=== PATIENT | female | born 1995 | race Caucasian/White ===

== ENCOUNTER 2018-05-30 21:39 | Emergency (ER) | payer OTHER ==
[2016-03-02 22:17] VITALS: BMI 39.2
--- NOTE | 2018-05-30 22:21 | OBHP ---
Datetime: 05/30/2018 22:14 IP Adm Impression: , intrauterine IP Admit Plan: Discharge home Admit Comment, IP Provider: with IUP at 36+4 weeks presents with irreg contractions and back pa in at site of prior epidural good movement, denies vaginal bleeding or leakage of fluids OB Hx: 1 FT , no complications [employer] Hx: LMP end of Aug or sep, denies STIS, normal paps denies PMH NKDA taking prenatals sometimes SVE: FT thick posterior EFM cat 1 [place] no contractions labor precuations discussed patient may take tylenol PRN back pain follow up appointment next week with her private OBGYN already scheduled discharge home Pelvic Type - PN: Adequate Extremities - PN: Not Done Abdomen - PN: Normal Back - PN: Not Done Breast - PN: Not Done Lungs - PN: Not Done Heart - PN: Not Done Thyroid - PN: Not Done Neurologic - PN: Not Done HEENT - PN: Normal General - PN: Normal Membranes, Provider: Intact Pool Provider: Negative EGA AdmitDate IP: 36.4 Vital Signs Provider: Reviewed; Within Normal Limits IP Chief Complaint: Uterine contractions FHR Category Provider Fetus A: Category I Dilatation, Provider: FT Effacement, Provider: thick Station, Provider: -3 Genitourinary Exam: Normal DTRs - PN: Not Done
[2018-05-31 02:30] VITALS: BP 117/64; PULSE 73; TEMP 97.9
== END 2018-05-30 22:28 | disposition home or self-care (01) ==
LOC: C.EROB 21:39
DX: O47.03 False labor before 37 completed weeks of gestation, third trimester (principal); Z3A.36 36 weeks gestation of pregnancy

== ENCOUNTER 2018-06-22 12:23 | Inpatient (IN) | payer OTHER ==
[2016-03-02 22:17] VITALS: BMI 39.2
[2018-06-22 14:06] LABS: SQUAMOUS EPITHIAL 3 /hpf (0-5); URINE BACTERIA RARE (<OCC); URINE BILIRUBIN NEGATIVE (NEGATIVE); URINE BLOOD NEGATIVE (NEGATIVE); URINE CLARITY Hazy (Clear); URINE COLOR Yellow (YELLOW); URINE GLUCOSE (UA) NORMAL (Normal); URINE LEUKOCYTE ESTERASE 1+ Leu/uL (Negative); URINE PROTEIN 1+ mg/dL (NEGATIVE); URINE UROBILINOGEN NORMAL mg/dL (0.2-1.0)
[2018-06-22 14:54] LABS: BASO % 0.5 % (0.0-2.0); EOS # 0.2 K/uL (0.0-0.7); EOS % 1.6 % (0.0-4.0); HEMOGLOBIN 12.4 g/dL (11.0-16.0); LYMPH # 2.2 K/uL (1.0-4.3); LYMPH % 22.4 % (20.0-40.0); MEAN CELL VOLUME 83.2 fL (81.0-99.0); MEAN CORPUSCULAR HEMOGLOBIN 28.4 pg (27.0-31.0); MEAN CORPUSCULAR HGB CONC 34.2 g/dL (33.0-37.0); MEAN PLATELET VOLUME 10.9 fL (7.2-11.7); MONO # 0.9 K/uL (0.0-0.8); MONO % 9.3 % (0.0-10.0); NEUT # 6.5 K/uL (1.8-7.0); NEUT % 66.2 % (50.0-75.0); RBC 4.35 Mil/uL (3.80-5.20); WHITE BLOOD COUNT 9.8 K/uL (4.8-10.8)
[2018-06-22] MEDS ORDERED: Lactated Ringer's 1,000 ML IV SCH (15:00)
[2018-06-22] MEDS ORDERED: Penicillin G 5 Million Unit Vial IVPB ONE ×2 (15:00→19:17)
[2018-06-22] MEDS ORDERED: Lactated Ringer's 1,000 ML IV ONE (15:00)
[2018-06-22 15:23] LABS: ALB/GLOB RATIO 1.2 (1.0-2.1); ALBUMIN 4.1 g/dL (3.5-5.0); ALT/SGPT 16 U/L (9-52); AST/SGOT 17 U/L (14-36); BLOOD UREA NITROGEN 14 mg/dL (7-17); CALCIUM 9.8 mg/dl (8.6-10.4); GFR NON-AFRICAN AMERICAN > 60
--- NOTE | 2018-06-22 18:10 | OBADHP ---
Datetime: 06/22/2018 17:00 Dilatation, Provider: 1-2 Datetime: 06/22/2018 13:36 IP Chief Complaint Other: Tachycardia Admit Comment, IP Provider: This 23 year old Female with PMHx of anemia requiring infusion and UTI during this , presents c/o lower abdominal pressure for the past 4 days. She is with LMP 09/05/17 and EDC 06/23/18. She reports that she had a UTI last week, but was not worked up o r treated. She currently denies dysuria, urinary frequency, malodorous urine, abdominal cramping, or fevers/chills. She states her has been uneventful to date. She denies any vaginal bleeding, contractions, decreased movement, or loss of fluids. She was seen last week in Dr. Sylvester's off [facility] ([facility]), and she was informed that she is GBS+ and will require antibiotics during labor. She oth erwise denies any additional acute complaints. PMHx- anemia requiring transfusion ObHx- ; last child is a 2yo F, , induced at 40wks, no complications GynHx- 1st menses 12yo; normal flow; last PAP 2015 normal; no hx of STDs PSHx- denies Meds- none NKDA FamHx- Mom 40 / Dad 41, healthy SocHx- denies tobacco, ETOH, or illicit drug use; lives home on 1st floor; on maternity leave Blood Type- A(+) A_P: 1.Case discussed with Dr. Sylvester and request to admit patient for IOL - Start Cervidil 10mg VAG once 2. Lower abdominal discomfort - pt with hx of UTI during (documented in 04/2018 and reported to have similar sx's last week) - f/u UA 3. GBS(+) - detected 05/29/18 - Start Penicillin G 5mu once + Penicillin G 2.5mu q4H 4. Maternal Dehydration and Tachycardia Will admit patient, order admit labs, IV Hydration and will place Cervidil Anticipate vaginal delivery Pelvic Type - PN: Adequate Extremities - PN: Normal Abdomen - PN: Normal Back - PN: Normal Breast - PN: Not Done Lungs - PN: Normal Heart - PN: Normal Thyroid - PN: Normal Neurologic - PN: Normal HEENT - PN: Normal General - PN: Normal Presentation-Admit: Vertex FHR - Baseline A Provider: 145 Membranes, Provider: Intact Contraction Comments Provider: Ocassional Comments, ACOG Physical Exam: Grossly bengin, no LE edema, Fundal height 2cm below xyphoid, Cervical exam - 1-2cm dilated. Gestation - Est Wks by US: 39.6 Vital Signs Provider: Reviewed; Within Normal Limits IP Chief Complaint: Maternal discomfort NICHD Variability Prov Fetus A: Moderate 6-25bpm NICHD Accel Fetus A IP Provider: 10X10 FHR Category Provider Fetus A: Category I NICHD Decel Fetus A IP Provider: None Effacement, Provider: 30 Station, Provider: -3 Genitourinary Exam: Normal DTRs - PN: Normal EGA AdmitDate IP: 39.6 IP Adm Impression: Term, intrauterine ; No Active Labor; Intact Membranes IP Admit Plan: Initiate labor induction protocol Datetime: 05/30/2018 22:14 Pool Provider: Negative
--- NOTE | 2018-06-22 18:16 | OBPN ---
Datetime: 06/22/2018 17:00 IP Progress Impression Other: Dehydration and Tachycardia IP Informed Consent Obtain: Vaginal Delivery IP Procedures: Sterile Vag Exam IP Progress Plan: Induction; Cervical Ripening; Antibiotic therapy Membranes, Provider: Intact Contraction Comments Provider: Ocassional and mild FHR - Baseline A Provider: 160 Gestation - Est Wks by US: 39.6 Presentation-Admit: Vertex IP Progress Note Comment: Pt seen and examined S/P IV Hydration Cervidil placed without difficulty at about 1500 All labs reviewed Reassuring FHT's / Tachycardia ressolving Hope for a vaginal delivery NICHD Accel Fetus A IP Provider: 10X10 FHR Category Provider Fetus A: Category I NICHD Variability Prov Fetus A: Moderate 6-25bpm Dilatation, Provider: 1-2 Effacement, Provider: 30 Station, Provider: -3 Datetime: 06/22/2018 13:36 Vital Signs Provider: Reviewed; Within Normal Limits NICHD Decel Fetus A IP Provider: None Datetime: 05/30/2018 22:14 Pool Provider: Negative
--- NOTE | 2018-06-22 18:20 | OBHP ---
Datetime: 06/22/2018 17:00 Presentation-Admit: Vertex FHR - Baseline A Provider: 160 Membranes, Provider: Intact Contraction Comments Provider: Ocassional and mild Gestation - Est Wks by US: 39.6 NICHD Variability Prov Fetus A: Moderate 6-25bpm NICHD Accel Fetus A IP Provider: 10X10 FHR Category Provider Fetus A: Category I Dilatation, Provider: 1-2 Effacement, Provider: 30 Station, Provider: -3 Datetime: 06/22/2018 13:36 IP Adm Impression: Term, intrauterine ; No Active Labor; Intact Membranes IP Chief Complaint Other: Tachycardia IP Admit Plan: Initiate labor induction protocol Admit Comment, IP Provider: This 23 year old Female with PMHx of anemia requiring infusion and UTI during this , presents c/o lower abdominal pressure for the past 4 days. She is with LMP 09/05/17 and EDC 06/23/18. She reports that she had a UTI last week, but was not worked up o r treated. She currently denies dysuria, urinary frequency, malodorous urine, abdominal cramping, or fevers/chills. She states her has been uneventful to date. She denies any vaginal bleeding, contractions, decreased movement, or loss of fluids. She was seen last week [facility] [place] [facility] and she was informed that she is GBS+ and will require antibiotics during labor. She oth erwise denies any additional acute complaints. PMHx- anemia requiring transfusion ObHx- ; last child is a 2yo F, , induced at 40wks, no complications GynHx- 1st menses 12yo; normal flow; last PAP 2015 normal; no hx of STDs PSHx- denies Meds- none NKDA FamHx- Mom 40 / Dad 41, healthy SocHx- denies tobacco, ETOH, or illicit drug use; lives home on 1st floor; on maternity leave Blood Type- A(+) A_P: 1. Maternal Dehydration and Tachycardia, otherwise NST Reactive - Case discussed with Dr. Sylvester and request to admit patient for IOL - Start Cervidil 10mg VAG once 2. Lower abdominal discomfort - pt with hx of UTI during (documented in 04/2018 and reported to have similar sx's last week) - f/u UA 3. GBS(+) - detected 05/29/18 - Start Penicillin G 5mu once + Penicillin G 2.5mu q4H Will admit patient, order admit labs, IV Hydration and will place Cervidil Anticipate vaginal delivery Pelvic Type - PN: Adequate Extremities - PN: Normal Abdomen - PN: Normal Back - PN: Normal Breast - PN: Not Done Lungs - PN: Normal Heart - PN: Normal Thyroid - PN: Normal Neurologic - PN: Normal HEENT - PN: Normal General - PN: Normal Comments, ACOG Physical Exam: Grossly bengin, no LE edema, Fundal height 2cm below xyphoid, Cervical exam - 1-2cm dilated. EGA AdmitDate IP: 39.6 Vital Signs Provider: Reviewed; Within Normal Limits IP Indication for Induction Oth: Tachycardia Dehydration IP Chief Complaint: Maternal discomfort NICHD Decel Fetus A IP Provider: None Genitourinary Exam: Normal DTRs - PN: Normal
--- NOTE | 2018-06-22 18:41 | OBADHP ---
Datetime: 06/22/2018 17:00 FHR - Baseline A Provider: 160 Datetime: 06/22/2018 14:00 IP Chief Complaint Other: Tachycardia/ Dehydration Admit Comment, IP Provider: This 23 year old Female with PMHx of anemia requiring infusion and UTI during this , presents c/o lower abdominal pressure for the past 4 days. She is with LMP 09/05/17 and EDC 06/23/18. She reports that she had a UTI last week, but was not worked up o r treated. She currently denies dysuria, urinary frequency, malodorous urine, abdominal cramping, or fevers/chills. She states her has been uneventful to date. She denies any vaginal bleeding, contractions, decreased movement, or loss of fluids. She was seen last [facility]), and she was informed that she is GBS+ and will require antibiotics during labor. She oth erwise denies any additional acute complaints. PMHx- anemia requiring transfusion ObHx- ; last child is a 2yo F, , induced at 40wks, no complications GynHx- 1st menses 12yo; normal flow; last PAP 2015 normal; no hx of STDs PSHx- denies Meds- none NKDA FamHx- Mom 40 / Dad 41, healthy SocHx- denies tobacco, ETOH, or illicit drug use; lives home on 1st floor; on maternity leave Blood Type- A(+) A_P: 1. Maternal Dehydration and Tachycardia, otherwise NST Reactive - Case discussed with Dr. Sylvester and request to admit patient for IOL - Start Cervidil 10mg VAG once 2. Lower abdominal discomfort - pt with hx of UTI during (documented in 04/2018 and reported to have similar sx's last week) - f/u UA 3. GBS(+) - detected 05/29/18 - Start Penicillin G 5mu once + Penicillin G 2.5mu q4H Will admit patient, order admit labs, IV Hydration and will place Cervidil Anticipate vaginal delivery Pelvic Type - PN: Adequate Extremities - PN: Normal Abdomen - PN: Normal Back - PN: Normal Breast - PN: Not Done Lungs - PN: Normal Heart - PN: Normal Thyroid - PN: Normal Neurologic - PN: Normal HEENT - PN: Normal General - PN: Normal Gestation - Est Wks by US: 39.6 Vital Signs Provider: Reviewed FHR Category Provider Fetus A: Category I Dilatation, Provider: 1-2 Effacement, Provider: 30 Station, Provider: -3 Genitourinary Exam: Normal DTRs - PN: Normal IP Adm Impression: Term, intrauterine ; No Active Labor; Intact Membranes IP Admit Plan: Initiate labor protocol (Annotations: Data stored by CPN on behalf of user) Datetime: 06/22/2018 13:36 EGA AdmitDate IP: 39.6
[2018-06-22] MEDS ORDERED: Nalbuphine HCL 10 mg/ml Ampule ONE (22:13)
[2018-06-22] MEDS ORDERED: Nalbuphine 20 mg/ml Inj (1 ml) IVP PRN (22:15)
[2018-06-23] MEDS ORDERED: Fentanyl/Bupivacaine HCl 250 ML EPI ONE (00:42)
[2018-06-23] MEDS ORDERED: Lidocaine 2% MPF (5 ml) Inj ONE ×2 (01:27)
[2018-06-23] MEDS ORDERED: Nalbuphine HCL 10 mg/ml Ampule IVP ONE (01:30)
[2018-06-23] MEDS ORDERED: Nalbuphine HCL 10 mg/ml Ampule ONE (01:35)
[2018-06-23] MEDS ORDERED: Oxytocin 10 Units/ml Inj ONE (01:43)
[2018-06-23] MEDS ORDERED: Oxycodone/Acetaminophen 5/325 mg Tab PO PRN ×2 (01:55)
[2018-06-23] MEDS ORDERED: Oxytocin 10 Units/ml Inj IM STA (01:56)
[2018-06-23] MEDS ORDERED: Benzocaine/Menthol 20%-0.5% Topical Spray (60 ml) TOP PRN (02:03)
--- NOTE | 2018-06-23 02:10 | OBDS ---
MATERNAL INFORMATION Provider Comments: pt delivered precipitousy. atrumatic, spontaneous delivery of head followed by dl eiery of body. umbicl cord calmped and cut. spontanesous dlievery of intact placenta with membranes. fundus firm. good hmostais. clirotial superificl laceration repiared iwth local anesthesi and first degree perineal laceration afer local. good hemoasis, noc mpciaotns live female infnat agpars 9,9 ebl 400ml LABOR SUMMARY EDC: 06/23/2018 00:00 No. Babies in Womb: 1 LABOR INFORMATION Cervical Ripening Agents: Cervidil in place. Other Ripening Agents: Cervidil inserted intravaginally by @ 1500 Group B Beta Strep: Positive STAGES OF LABOR Stage 3 hrs: 0 Stage 3 min: 1 BABY A INFORMATION Infant Delivery Date/Time: 06/23/2018 01:12 Method of Delivery: Vaginal SHOULDER DYSTOCIA BABY A Infant Delivery Date/Time: 06/23/2018 01:12 PRESENTATION/POSITION BABY A Presentation: Cephalic Cephalic Presentation: Vertex Breech Presentation: N/A PLACENTA INFORMATION BABY A Placenta Delivery Time : 06/23/2018 01:13 Placenta Method of Delivery: Manual Removal Placenta Status: Delivered SCORES BABY A Heart Rate 1 min: >100 bpm Resp Effort 1 min: Good Cry Reflex Irritability 1 min: Cough or Sneeze or Pulls Away Muscle Tone 1 min: Active Motion Color 1 min: Body Duck, Extremities Blue SCORE 1 MIN: 9 Heart Rate 5 min: >100 bpm Resp Effort 5 min: Good Cry Reflex Irritability 5 min: Cough or Sneeze or Pulls Away Muscle Tone 5 min: Active Motion Color 5 min: Body Duck, Extremities Blue SCORE 5 MIN: 9 INFORMATION BABY A Gestational Age at Delivery: 40.0 Outcome : Liveborn Infant Condition : Stable Sex: Female IDENTIFICATION/MEDS BABY A ID Band Number: [id number] Sensor Number: [id number] CORD INFORMATION BABY A No. Cord Vessels: 3 ASSESSMENT BABY A Complications: None Physical Findings at Delivery: Within Normal Limits Respirations: Appears Normal
[2018-06-23] MEDS: Benzocaine/Menthol 20%-0.5% Topical Spray (60 ml) TOP PRN ×2 (06:53→17:51)
[2018-06-23 07:20] LABS: BASO # 0.1 K/uL (0.0-0.2); BASO % 0.6 % (0.0-2.0); EOS % 0.3 % (0.0-4.0); HEMOGLOBIN 10.8 g/dL (11.0-16.0); LYMPH # 2.2 K/uL (1.0-4.3); MEAN CELL VOLUME 83.2 fL (81.0-99.0); MEAN CORPUSCULAR HEMOGLOBIN 28.2 pg (27.0-31.0); MEAN CORPUSCULAR HGB CONC 33.9 g/dL (33.0-37.0); MEAN PLATELET VOLUME 10.5 fL (7.2-11.7); MONO # 0.9 K/uL (0.0-0.8); MONO % 6.3 % (0.0-10.0); NEUT # 10.4 K/uL (1.8-7.0); NEUT % 76.8 % (50.0-75.0); RBC 3.83 Mil/uL (3.80-5.20); RED CELL DISTRIBUTION WIDTH 14.2 % (11.5-14.5); WHITE BLOOD COUNT 13.5 K/uL (4.8-10.8)
[2018-06-23 07:59] VITALS: RESP 18
[2018-06-23] MEDS: Magnesium Hydroxide Susp 30 ml UD PO ONE ×2 (09:17→17:51)
[2018-06-23] MEDS: Multiple Vitamins Tab PO SCH (09:18)
[2018-06-24] MEDS: Benzocaine/Menthol 20%-0.5% Topical Spray (60 ml) TOP PRN (01:08)
[2018-06-24 01:16] VITALS: O2SAT 98
--- NOTE | 2018-06-24 07:22 | OBPPN ---
Datetime: 06/24/2018 07:16 PP Pain Prov: Within normal limits PP Nausea Prov: Denies PP Flatus Prov: Yes PP Breasts Prov: Normal PP Heart Prov: Normal PP Lungs Prov: Normal PP Abdomen/Uterus Prov: Normal PP Lochia Prov: Normal PP Vulva/Perineum Prov: Normal PP CVA Tenderness Prov: Normal PP Extremities Prov: Normal PP C/S Incision Prov: Not Applicable PP Progress Prov: Normal PP Impression Prov: Normal progression PP Plan Prov: Continue present management Vital Signs Provider PP: Reviewed
--- NOTE | 2018-06-24 08:48 | OBDCSUM ---
Datetime: 06/24/2018 08:44 Discharged to, Provider: Home Follow up at, Provider: Dr baires Disch Instr Activity: Normal activity Disch Instr Diet: Regular Discharge Instructions, Provider: Routine instructions given Discharge Diagnosis, Provider: Term Delivered Discharge Time: 06/24/2018 08:44 Follow up in weeks, Provider: 6 weeks Disch Referrals: None Contraception discussed, Prov: Yes Discharge Comment, Provider: precautions givne Contraception after Delivery: Not Planning to Use
[2018-06-24] MEDS: Multiple Vitamins Tab PO SCH (11:03)
[2018-06-24] MEDS ORDERED: Influenza Vaccine 60 MCG/0.5 ML SYR (3 yr & up) IM ONE (13:00)
[2018-06-24 19:38] VITALS: BP 128/81; PULSE 66; TEMP 97
== END 2018-06-24 14:00 | disposition home or self-care (01) ==
LOC: C.EROB 12:23 → C.4D 14:02 → UNDOADMIN 14:18 → C.4M 06-23 03:34
PROVIDERS: ADMIT Obstetrics & Gynecology; ATTEND Obstetrics & Gynecology
PROC: 3E0P7VZ Introduction of Hormone into Female Reproductive, Via Natural or Artificial Opening (ICD-10-PCS; 2018-06-22)
PROC: 10E0XZZ Delivery of Products of Conception, External Approach (ICD-10-PCS; principal; 2018-06-23)
PROC: 0HQ9XZZ Repair Perineum Skin, External Approach (ICD-10-PCS; 2018-06-23)
DX: O99.284 Endocrine, nutritional and metabolic diseases complicating childbirth (principal); E86.0 Dehydration; O76 Abnormality in fetal heart rate and rhythm complicating labor and delivery; N39.0 Urinary tract infection, site not specified; O70.0 First degree perineal laceration during delivery; O62.3 Precipitate labor; O99.824 Streptococcus B carrier state complicating childbirth; Z87.440 Personal history of urinary (tract) infections; Z3A.39 39 weeks gestation of pregnancy; Z37.0 Single live birth